=== PATIENT | female | born 1950 | race African-American/Black ===

== ENCOUNTER → 2017-02-05 | Outpatient (CLI) | payer OTHER ==
--- NOTE | ~2017-02-05 | US77 ---
[facility] A Service of [facility] & [facility] RADIOLOGY TEXT RESULTS PATIENT: NINI RICHARDS LOCATION: [facility] : 54 UNIT #: [id number] AGE: [address]: Tremaine Rose MD SEX: F ORDER DR: [id number] [facility] [address] [place], [place] [address] [id number] O MR#: [id number] Acc #: [id number] NAME: NINI RICHARDS : 1950 SEX: F STUDY DATE/TIME: 02/05/2017 15:53 UNIT: [facility] ROOM: STUDY DESCRIPTION: US Kidney Bilateral Complete Attending Physician: Cody Rose M.D. Referring Physician: Cody Rose M.D. Ordering Physician: Cody Rose M.D. Primary Care Physician: Fátima Webster M.D. MEDICAL IMAGING REPORT This report is preliminary unless electronic signature is present EXAM Renal ultrasound, 02/05/2017 HISTORY Chronic kidney disease stage III FINDINGS The right kidney measures 9.5 cm, while the left kidney measures 10.1 cm in longitudinal dimensions. There is no evidence of hydronephrosis or nephrolithiasis. No cystic or solid mass lesions were seen on either kidney. There is normal renal cortical echogenicity. Images of the bladder are normal. IMPRESSION 1. Negative renal ultrasound. 2. Images of the bladder are normal. Dictated by... Willis Rosa M.D. THIS IS AN ELECTRONICALLY VERIFIED REPORT Willis Rosa M.D. at 02/06/2017 8:01 AM KRT/romel TD: 02/06/2017 00:17 JOB #: [id number] MEDICAL IMAGING REPORT COPY
[2017-02-05 16:00] LABS: ALBUMIN SERUM 4.4 g/dL (3.5-5.0); BILIRUBIN,TOTAL 0.5 mg/dL (0.2-2.0); BUN/CREATININE RATIO 17.5; CALCIUM SERUM 9.6 mg/dL (8.4-10.2); CREATININE SERUM 1.2 mg/dL (0.6-1.4); GLOM FILT RATE Estimated 58.2 mL/min (>60); PHOSPHOROUS 3.7 mg/dL (2.5-4.6); POTASSIUM 3.7 mmol/L (3.5-5.1); PROTEIN TOTAL SERUM 7.7 g/dL (6.0-8.3); URIC ACID 7.6 mg/dL (2.6-7.2)
[2017-02-08 09:30] LABS: ANA SCREEN Negative (Negative); CALCIUM (PTHINTACT) 9.9 mg/dL (8.6-10.4)
== END | disposition home or self-care (01) ==
LOC: CGUS 15:10
PROVIDERS: Internal Medicine Nephrology
DX: N18.3 Chronic kidney disease, stage 3 (moderate) (principal)
CPT/HCPCS: 76770; 80053; 82310; 83970; 84100; 84550; 86038; 86039